=== PATIENT | male | born 1960 | race Caucasian/White ===

== ENCOUNTER 2017-12-23 20:07 | Emergency (ER) | payer BC ==
--- OUTSIDE RECORDS SUMMARY | 2017-12-23 20:09 | XMS REPORT | Continuity of Care Document ---
:1960 Author Organization Interface Problems Problem Status Onset Date Classification Date Comments Source Reported Medications Medication Details Route Status Patient Ordering Order Source Instructions Provider Date Allergies, Adverse Reactions, Alerts Substance Category Reaction Severity Reaction Status Date Comments Source type Reported Immunizations Immunization Date Given Site Status Last Updated Comments Source Results Order Results Value Reference Date Interpretation Comments Source Name Range Vital Signs Vital Sign Value Date Comments Source Encounters Location Location Encounter Encounter Reason Attending ADM DC Status Source Details Type Number For Provider Date Date Visit Outpatient [id number] ELLY 02/25 [facility] [place] Outpatient [id number] [facility] 05/22 [facility] [place] [facility] [id number] [facility] 08/[facility] [place] Outpatient [id number] [facility] 11/17 [facility] [place] Procedures Procedure Code Date Perfomer Comments Source
[2017-12-23] MEDS ORDERED: GLUCAGON 1 MG/VIAL ONE ×2 (20:25→23:23)
[2017-12-23] MEDS ORDERED: ONDANSETRON 4 MG/2 ML VIAL ONE (20:40)
[2017-12-23 21:05] LABS: Absolute Lymphocytes (CBC) 1.4 K/uL (0.7-4.9); Absolute Monocytes 0.6 K/uL (0.1-1.3); Absolute Neutrophil 3.9 K/uL (1.8-8.0); Basophils % 0.4 % (0-1.3); Eosinophils % 3.6 % (0-4.4); Hematocrit 50.6 % (39.6-49.0); Lymphocytes % 22.7 % (15.3-44.8); MCH 28.7 pg (27.0-35.0); MCV 86.7 fL (80-100); MPV 7.1 fL (7.6-11.3); Monocytes % 9.2 % (3.3-12.3); RBC Red Blood Cell Count 5.83 M/uL (4.33-5.43)
--- NOTE | 2017-12-23 21:18 | RAD REPORT ---
EXAM DESCRIPTION: Juanita Single View12/23/2017 8:48 pm CLINICAL HISTORY: Chest pain COMPARISON: none FINDINGS: The lungs appear clear of acute infiltrate. The heart is normal size IMPRESSION: No acute abnormalities displayed
[2017-12-23 21:34] LABS: Albumin 3.8 g/dL (3.4-5.0); Bilirubin Total 0.3 mg/dL (0.2-1.0); Potassium 3.5 mmol/L (3.5-5.1); Protein, Total 7.6 g/dL (6.4-8.2)
--- NOTE | 2017-12-23 21:37 | ER ---
Nurse's Notes [facility] Name: Chirag Lomeli Age: 57 yrs Sex: Male : 1960 Arrival Date: 12/23/2017 Time: 20:08 Bed 15 Private MD: Diagnosis: Esophageal obstruction Presentation: 12/23 20:10 Presenting complaint: EMS states: Pt was found choking on a piece of steak. denies jb4 difficulty breathing at this time. 20:10 Transition of care: patient was not received from another setting of care. Onset of jb4 symptoms was December 23, 2017 at 19:30. Risk Assessment: Do you want to hurt yourself or someone else? Patient reports no desire to harm self or others. Initial Sepsis Screen: Does the patient meet any 2 criteria? HR > 90 bpm. No. Patient's initial sepsis screen is negative. Does the patient have a suspected source of infection? No. Patient's initial sepsis screen is negative. Care prior to arrival: None. 20:10 Method Of Arrival: EMS: [facility] 20:10 Acuity: MELANY 2 jb4 Triage Assessment: 20:29 General: Appears in no apparent distress. uncomfortable, Behavior is cooperative, jb4 anxious, Smells of alcohol. Pain: Denies pain. EENT: No signs and/or symptoms were reported regarding the EENT system. Neuro: Level of Consciousness is awake, alert, obeys commands, Oriented to person, place, time, situation. Cardiovascular: Heart tones S1 S2 present Patient's skin is warm and dry. Respiratory: Airway is patent Respiratory effort is even, unlabored, Respiratory pattern is regular, symmetrical, Breath sounds are clear bilaterally. GI: Reports vomiting. : No signs and/or symptoms were reported regarding the genitourinary system. Derm: Skin is intact, Skin is pink, warm \T\ dry. Musculoskeletal: Capillary refill. Historical: - Allergies: 20:29 PENICILLINS; jb4 - PMHx: 20:29 Hypertension; jb4 - PSHx: 20:29 None; jb4 - Immunization history:: Adult Immunizations unknown. - Social history:: Smoking status: Patient/guardian denies using tobacco, Patient uses alcohol, Had 3 beers prior to arrival to ER. - Ebola Screening: : No symptoms or risks identified at this time. Screenin:44 Abuse screen: Denies threats or abuse. Nutritional screening: No deficits noted. jb4 Tuberculosis screening: No symptoms or risk factors identified. Fall Risk IV access (20 points). Total Staples Fall Scale indicates No Risk (0-24 pts). Assessment: 20:43 General: see triage assesment.. jb4 21:00 Reassessment: Pt notified that GI has been consulted for removal of food bolus. jb4 21:17 Reassessment: Patient appears in no apparent distress at this time. Patient and/or jb4 family updated on plan of care and expected duration. Pain level reassessed. Patient is alert, oriented x 3, equal unlabored respirations, skin warm/dry/pink. Pt reported that the steak has gone down. Pt is drinking fluids without vomiting or coughing. Physician notified. Patient denies pain at this time. 21:40 Reassessment: Patient appears in no apparent distress at this time. Patient is alert, jb4 oriented x 3, equal unlabored respirations, skin warm/dry/pink. discussed D/c, F/u to pt, denies questions or concerns. Vital Signs: 20:29 BP 163 / 97; Pulse 108; Resp 20; Temp 99.2(A); Pulse Ox 95% on R/A; Weight 124.74 kg; jb4 21:17 BP 153 / 96; Pulse 96; Resp 20; Pulse Ox 96% on R/A; jb4 ED Course: 20:08 Patient arrived in ED. ds1 20:10 Inserted saline lock: 20 gauge in right forearm, using aseptic technique. jb4 20:15 Naveed Beltran MD is Attending Physician. tw4 20:25 Chirag Robertson, COLE is Primary Nurse. jb4 20:28 Triage completed. jb4 20:29 Arm band placed on left wrist. jb4 20:44 Patient has correct armband on for positive identification. Bed in low position. Call jb4 light in reach. Side rails up X 1. Pulse ox on. NIBP on. 20:47 X-ray completed. Portable x-ray completed in exam room. Patient tolerated procedure az well. 20:48 Chest Single View XRAY In Process Unspecified. EDMS 20:53 CMP Sent. ds4 20:53 CBC with Diff Sent. ds4 21:36 Devaughn Rosenbreg MD is Referral Physician. tw4 21:40 No provider procedures requiring assistance completed. jb4 21:40 IV discontinued, intact, bleeding controlled. jb4 Administered Medications: 20:25 Drug: Glucagon 1 mg Route: IVP; Site: right forearm; jb4 22:03 Follow up: Response: No adverse reaction jb4 20:43 Drug: Zofran 4 mg Route: IVP; Site: right forearm; jb4 22:03 Follow up: Response: No adverse reaction; Vomiting decreased jb4 Outcome: 21:36 Discharge ordered by . tw4 21:40 Discharged to home ambulatory. jb4 21:40 Condition: stable 21:40 Discharge instructions given to patient, Instructed on discharge instructions, follow up and referral plans. Demonstrated understanding of instructions, follow-up care. 21:44 Patient left the ED. jb4 Signatures: Dispatcher [employer] EDNY Virgen Mitchell ds1 Galo Kaufman ds4 Chirag Robertson RN RN jb4 Naveed Beltran MD MD tw4 Jeannette Arrieta
--- NOTE | 2017-12-23 21:37 | EDPHYS ---
Physician Documentation [facility] Name: Chirag Lomeli Age: 57 yrs Sex: Male : 1960 Arrival Date: 12/23/2017 Time: 20:08 Bed 15 Private MD: ED Physician Naveed Beltran HPI: 12/23 20:54 This 57 yrs old Male presents to ER via EMS with complaints of Foreign Body tw4 In Throat, cant swallow and keep liquids or solids down after eating steak. 20:54 The patient presents with dysphagia, of both solids and liquids. The patient describes tw4 throat pain as constant. Onset: The symptoms/episode began/occurred today. Severity of symptoms: At their worst the symptoms were moderate, in the emergency department the symptoms are unchanged. Modifying factors: The symptoms are alleviated by nothing, the symptoms are aggravated by nothing. The patient has not experienced similar symptoms in the past. Historical: - Allergies: 20:29 PENICILLINS; jb4 - PMHx: 20:29 Hypertension; jb4 - PSHx: 20:29 None; jb4 - Immunization history:: Adult Immunizations unknown. - Social history:: Smoking status: Patient/guardian denies using tobacco, Patient uses alcohol, Had 3 beers prior to arrival to ER. - Ebola Screening: : No symptoms or risks identified at this time. ROS: 20:54 Constitutional: Negative for fever, chills, and weight loss. tw4 20:54 Cardiovascular: Negative for chest pain, palpitations, and edema, Respiratory: Negative for shortness of breath, cough, wheezing, and pleuritic chest pain, Abdomen/GI: Negative for abdominal pain, nausea, vomiting, diarrhea, and constipation, Back: Negative for injury and pain, MS/Extremity: Negative for injury and deformity. 20:54 ENT: Positive for sore throat. Exam: 21:00 Constitutional: This is a well developed, well nourished patient who is awake, alert, tw4 and in no acute distress. Head/Face: Normocephalic, atraumatic. Chest/axilla: Normal chest wall appearance and motion. Nontender with no deformity. No lesions are appreciated. Cardiovascular: Regular rate and rhythm with a normal S1 and S2. No gallops, murmurs, or rubs. Normal PMI, no JVD. No pulse deficits. Respiratory: Lungs have equal breath sounds bilaterally, clear to auscultation and percussion. No rales, rhonchi or wheezes noted. No increased work of breathing, no retractions or nasal flaring. Abdomen/GI: Soft, non-tender, with normal bowel sounds. No distension or tympany. No guarding or rebound. No evidence of tenderness throughout. Back: No spinal tenderness. No costovertebral tenderness. Full range of motion. MS/ Extremity: Pulses equal, no cyanosis. Neurovascular intact. Full, normal range of motion. Neuro: Awake and alert, GCS 15, oriented to person, place, time, and situation. Cranial nerves II-XII grossly intact. Motor strength 5/5 in all extremities. Sensory grossly intact. Cerebellar exam normal. Normal gait. Vital Signs: 20:29 BP 163 / 97; Pulse 108; Resp 20; Temp 99.2(A); Pulse Ox 95% on R/A; Weight 124.74 kg; jb4 21:17 BP 153 / 96; Pulse 96; Resp 20; Pulse Ox 96% on R/A; jb4 MDM: 20:15 Patient medically screened. tw4 20:54 Data reviewed: vital signs, nurses notes. Data interpreted: arborist representative: rhythm is tw4 normal sinus rhythm. Counseling: I had a detailed discussion with the patient and/or guardian regarding: the historical points, exam findings, and any diagnostic results supporting the discharge/admit diagnosis. 21:34 Differential diagnosis: Allergic rhinitis, bronchitis, caustic ingetion, tonsillitis, tw4 tracheobronchitis, uvulitis. Test interpretation: by ED physician or midlevel provider: plain radiologic studies. Medication response: glucagon. Response to treatment: the patient's symptoms have mildly improved after treatment, and as a result, I will discharge patient. Physician consultation: Devaughn Rosenberg MD was contacted at 21:00, and will see patient in office. Special discussion: I discussed with the patient/guardian in detail that at this point there is no indication for admission to the hospital. It is understood, however, that if the symptoms persist or worsen the patient needs to return immediately for re-evaluation. ED course: pt's food impaction spontaneously resolved. 12/23 20:19 Order name: CBC with Diff tw4 12/23 20:19 Order name: CMP tw4 12/23 20:19 Order name: Chest Single View XRAY tw4 Administered Medications: 20:25 Drug: Glucagon 1 mg Route: IVP; Site: right forearm; jb4 22:03 Follow up: Response: No adverse reaction jb4 20:43 Drug: Zofran 4 mg Route: IVP; Site: right forearm; jb4 22:03 Follow up: Response: No adverse reaction; Vomiting decreased jb4 Disposition: 21:37 Chart complete. tw4 12/24 03:24 Co-signature as Attending Physician, Naveed Beltran MD. tw4 Disposition: 12/23/17 21:36 Discharged to Home. Impression: Esophageal obstruction. - Condition is Stable. - Discharge Instructions: Esophageal Stricture, Esophagogastroduodenoscopy. - Medication Reconciliation Form, Thank You Letter, Antibiotic Education, Prescription Opioid Use form. - Follow up: Devaughn Rosenberg MD; When: Today; Reason: Recheck today's complaints, Continuance of care. - Problem is new. - Symptoms have improved. Signatures: Dispatcher [employer] EDNJ Chirag Robertson RN RN [facility] Naveed Beltran MD MD tw4 Corrections: (The following items were deleted from the chart) 12/23 20:59 20:54 Constitutional: This is a well developed, well nourished patient who is awake, tw4 alert, and in no acute distress. Head/Face: Normocephalic, atraumatic. Chest/axilla: Normal chest wall appearance and motion. Nontender with no deformity. No lesions are appreciated. Cardiovascular: Regular rate and rhythm with a normal S1 and S2. No gallops, murmurs, or rubs. Normal PMI, no JVD. No pulse deficits. Respiratory: Lungs have equal breath sounds bilaterally, clear to auscultation and percussion. No rales, rhonchi or wheezes noted. No increased work of breathing, no retractions or nasal flaring. tw4 20:59 20:54 Abdomen/GI: Inspection: abdomen appears normal, Bowel sounds: normal, Palpation: tw4 moderate abdominal tenderness, tw4 20:59 20:54 MS/ Extremity: Pulses equal, no cyanosis. Neurovascular intact. Full, normal tw4 range of motion. Neuro: Awake and alert, GCS 15, oriented to person, place, time, and situation. Cranial nerves II-XII grossly intact. Motor strength 5/5 in all extremities. Sensory grossly intact. Cerebellar exam normal. Normal gait. tw4 21:00 20:54 Constitutional: Negative for fever, chills, and weight loss, Cardiovascular: tw4 Negative for chest pain, palpitations, and edema, Respiratory: Negative for shortness of breath, cough, wheezing, and pleuritic chest pain, MS/Extremity: Negative for injury and deformity, Skin: Negative for injury, rash, and discoloration, tw4 21:00 20:54 Abdomen/GI: Positive for abdominal pain, nausea and vomiting, nausea, vomiting, tw4 and diarrhea, nausea, vomiting, Negative for tw4 21:44 21:36 12/23/2017 21:36 Discharged to Home. Impression: Esophageal obstruction. jb4 Condition is Stable. Forms are Medication Reconciliation Form, Thank You Letter, Antibiotic Education, Prescription Opioid Use. Follow up: Devaughn Rosenberg; When: Today; Reason: Recheck today's complaints, Continuance of care. Problem is new. Symptoms have improved. tw4
== END 2017-12-23 21:44 | disposition home or self-care (01) ==
LOC: EDBD → ER 20:07
DX: K22.2 Esophageal obstruction (principal); I10 Essential (primary) hypertension; Z88.0 Allergy status to penicillin
CPT/HCPCS: 36415; 71045; 80053; 85025; 96374; 96375; 99284; J1610; J2405

== ENCOUNTER 2017-12-23 23:02 | Emergency (ER) | payer BC ==
--- OUTSIDE RECORDS SUMMARY | 2017-12-23 23:05 | XMS REPORT | Continuity of Care Document ---
[...] Number For Provider Date Date Visit Outpatient [id number] ELLY 02/25 [facility] [place] [id number] [facility] 05/22 [facility] [place] [facility] [id number] [facility] 08/21 [facility] [place] Out[facility] [id number] [facility] 11/17 [facility] [place] Procedures Procedure Code Date Perfomer Comments Source
[2017-12-24] MEDS ORDERED: ONDANSETRON 4 MG/2 ML VIAL ONE (01:06)
[2017-12-24] MEDS ORDERED: NA CHLORIDE 0.9% 0 ML ONE (01:07)
--- NOTE | 2017-12-24 01:07 | ER ---
Nurse's Notes [facility] Name: Chirag Lomeli Age: 57 yrs Sex: Male : 1960 Arrival Date: 12/23/2017 Time: 23:07 Bed 16 Private MD: Diagnosis: Esophageal obstruction Presentation: 12/23 23:05 Presenting complaint: Patient states: he was here earlier after choking on a piece of fc steak and after medication he was able to swallow she he went home. After getting home he decided to eat the steak and got another piece stuck. 23:05 Transition of care: patient was not received from another setting of care. Onset of fc symptoms was December 23, 2017 at 22:45. Risk Assessment: Do you want to hurt yourself or someone else? Patient reports no desire to harm self or others. Initial Sepsis Screen: Does the patient meet any 2 criteria? No. Patient's initial sepsis screen is negative. Does the patient have a suspected source of infection? No. Patient's initial sepsis screen is negative. Care prior to arrival: None. 23:05 Method Of Arrival: Ambulatory 23:05 Acuity: MELANY 3 fc Historical: - Allergies: 23:12 PENICILLINS; fc - PMHx: 23:12 Hypertension; fc - PSHx: 23:12 None; fc - Immunization history:: Last tetanus immunization: up to date. - Social history:: Smoking status: Patient/guardian denies using tobacco. - Ebola Screening: : Patient negative for fever greater than or equal to 101.5 degrees Fahrenheit, and additional compatible Ebola Virus Disease symptoms Patient denies exposure to infectious person Patient denies travel to an Ebola-affected area in the 21 days before illness onset. Screenin:05 Abuse screen: Denies threats or abuse. Nutritional screening: No deficits noted. fc Tuberculosis screening: No symptoms or risk factors identified. Fall Risk None identified. Assessment: 23:05 General: Appears in no apparent distress. uncomfortable, Behavior is calm, cooperative, jb4 appropriate for age. Pain: Denies pain. Neuro: Level of Consciousness is awake, alert, obeys commands, Oriented to person, place, time, situation. Cardiovascular: Heart tones S1 S2 present Patient's skin is warm and dry. Respiratory: Airway is patent Respiratory effort is even, unlabored, Respiratory pattern is regular, symmetrical, Breath sounds are clear bilaterally. GI: Pt is actively vomiting clear fluid. : No signs and/or symptoms were reported regarding the genitourinary system. EENT: No signs and/or symptoms were reported regarding the EENT system. Derm: Skin is intact, Skin is pink, warm \T\ dry. Musculoskeletal: Circulation, motion, and sensation intact. 12/24 01:04 Reassessment: Pt requesting to leave. Dr Beltran spoke with pt and explained that Dr jeremy Rosenberg is coming at 0700 to see and and do scope. Pt states that he feels better and is going to leave. States he understands the risks of not having the procedure done. Vital Signs: 12/23 23:05 Weight 120.2 kg (R); Height 6 ft. 7 in. (200.66 cm) (R); Pain 7/10; fc 23:10 BP 139 / 84; Pulse 104; Resp 20; Temp 98.9; Pulse Ox 98% on R/A; aa1 12/24 00:00 BP 130 / 77; Pulse 88; Resp 20; Pulse Ox 97% on R/A; jb4 12/23 23:05 Body Mass Index 29.85 (120.20 kg, 200.66 cm) ED Course: 12/23 23:05 Arm band placed on Patient placed in a hallway bed, on a stretcher. fc 23:05 Patient has correct armband on for positive identification. Bed in low position. Call fc light in reach. 23:05 No provider procedures requiring assistance completed. fc 23:07 Patient arrived in ED. fc 23:11 Triage completed. fc 23:41 Chirag Robertson, COLE is Primary Nurse. jb4 12/24 00:26 Naveed Beltran MD is Attending Physician. tw4 01:06 Devaughn Rosenberg MD is Referral Physician. tw4 01:07 IV discontinued, intact, bleeding controlled, No redness/swelling at site. Pressure fc dressing applied. Administered Medications: 12/23 23:30 Drug: Glucagon 1 mg Route: IVP; Site: left forearm; jb4 12/24 00:51 Follow up: Response: No adverse reaction jb4 Outcome: 01:07 AMA AMA form signed 01:07 Condition: good 01:07 Discharge instructions given to patient, friend, Instructed on discharge instructions, follow up and referral plans. Demonstrated understanding of instructions, follow-up care. 01:07 Patient left the ED. fc Signatures: Nena Martinez RN RN aa1 Obdulia Flores RN RN Chirag Robertson RN RN jb4 Naveed Beltran MD MD tw4
--- NOTE | 2017-12-25 01:08 | EDPHYS ---
Physician Documentation [facility] Name: Chirag Lomeli Age: 57 yrs Sex: Male : 1960 Arrival Date: 12/23/2017 Time: 23:07 Bed 16 Private MD: ED Physician Naveed Beltran HPI: 12/24 06:20 This 57 yrs old Male presents to ER via Ambulatory with complaints of tw4 Choked/Choking. 06:20 The patient presents with dysphagia, of both solids and liquids, a foreign body tw4 sensation in the throat. The patient describes throat pain as dry. Onset: The symptoms/episode began/occurred today. Severity of symptoms: At their worst the symptoms were moderate, in the emergency department the symptoms are unchanged. Associated signs and symptoms: The patient has no apparent associated signs or symptoms. The patient has not experienced similar symptoms in the past. Historical: - Allergies: 12/23 23:12 PENICILLINS; fc - PMHx: 23:12 Hypertension; fc - PSHx: 23:12 None; fc - Immunization history:: Last tetanus immunization: up to date. - Social history:: Smoking status: Patient/guardian denies using tobacco. - Ebola Screening: : Patient negative for fever greater than or equal to 101.5 degrees Fahrenheit, and additional compatible Ebola Virus Disease symptoms Patient denies exposure to infectious person Patient denies travel to an Ebola-affected area in the 21 days before illness onset. ROS: 12/24 06:20 Constitutional: Negative for fever, chills, and weight loss. tw4 ENT: Positive for difficulty handling secretions, difficulty swallowing, foreign body sensation, Negative for injury or acute deformity, pulling at ears, Teeth pain tinnitus, nasal discharge. Exam: 06:20 Constitutional: This is a well developed, well nourished patient who is awake, alert, tw4 and in no acute distress. Head/Face: Normocephalic, atraumatic. ENT: Nares patent. No nasal discharge, no septal abnormalities noted. Tympanic membranes are normal and external auditory canals are clear. Oropharynx with no redness, swelling, or masses, exudates, or evidence of obstruction, uvula midline. Mucous membranes moist. Chest/axilla: Normal chest wall appearance and motion. Nontender with no deformity. No lesions are appreciated. Cardiovascular: Regular rate and rhythm with a normal S1 and S2. No gallops, murmurs, or rubs. Normal PMI, no JVD. No pulse deficits. Respiratory: Lungs have equal breath sounds bilaterally, clear to auscultation and percussion. No rales, rhonchi or wheezes noted. No increased work of breathing, no retractions or nasal flaring. Abdomen/GI: Soft, non-tender, with normal bowel sounds. No distension or tympany. No guarding or rebound. No evidence of tenderness throughout. Back: No spinal tenderness. No costovertebral tenderness. Full range of motion. MS/ Extremity: Pulses equal, no cyanosis. Neurovascular intact. Full, normal range of motion. Vital Signs: 12/23 23:05 Weight 120.2 kg (R); Height 6 ft. 7 in. (200.66 cm) (R); Pain 7/10; fc 23:10 BP 139 / 84; Pulse 104; Resp 20; Temp 98.9; Pulse Ox 98% on R/A; aa1 12/24 00:00 BP 130 / 77; Pulse 88; Resp 20; Pulse Ox 97% on R/A; jb4 12/23 23:05 Body Mass Index 29.85 (120.20 kg, 200.66 cm) fc MDM: 00:26 Patient medically screened. tw4 06:20 Differential diagnosis: peritonsillar abscess Mycoplasma Pharyngitis pharyngitis, tw4 tonsillitis, tracheobronchitis. Data reviewed: vital signs, nurses notes. Counseling: I had a detailed discussion with the patient and/or guardian regarding: the historical points, exam findings, and any diagnostic results supporting the discharge/admit diagnosis. Physician consultation: Devaughn Rosenberg MD was contacted at 00:30, regarding patient's condition, need to come to ED to see patient, and will see patient in ED. Refusal of service: The patient/guardian displays adequate decision making capability and despite a detailed discussion of alternatives, benefits, risks, and consequences refuses: Admission to the hospital for further work-up and treatment. ED course: Pt returned 3 hours later after initial visit. Pt given glucagon again with spontaneously resolution. Pt leaves AMA. risks of leaving discussed and acknowledged by patient. Administered Medications: 12/23 23:30 Drug: Glucagon 1 mg Route: IVP; Site: left forearm; jb4 12/24 00:51 Follow up: Response: No adverse reaction jb4 Disposition: 12/24/17 01:06 Patient has left against medical advice. Impression: Esophageal obstruction. - Patients states they are going to Home. - Condition is Stable. - Discharge Instructions: Esophageal Stricture. Follow up: Devaughn Rosenberg MD; When: Upon discharge from the Emergency Department; Reason: Recheck today's complaints, Continuance of care. - Problem is new. - Symptoms have improved. Signatures: Spring Sen, ON SITE MANAGER-C ON SITE MANAGER-Csnw Obdulia Flores, RN RN fc Chirag Robertson RN RN jb4 Naveed Beltran MD MD tw4 Corrections: (The following items were deleted from the chart) 12/23 23:44 23:31 Misc. Order ordered. snw jb4 12/24 01:07 01:06 12/24/2017 01:06 Patients has left against medical advice. Impression: Esophageal fc obstruction. Patient states they are going to Home. Condition is Stable. Follow up: Devaughn Rosenberg; When: Upon discharge from the Emergency Department; Reason: Recheck today's complaints, Continuance of care. Problem is new. Symptoms have improved. tw4
== END 2017-12-24 01:07 | disposition left against medical advice (07) ==
LOC: ER 23:02
DX: K22.2 Esophageal obstruction (principal); Z88.0 Allergy status to penicillin
CPT/HCPCS: 96374; 99283; J2405; J7030